=== PATIENT | female | born 1995 | race Caucasian/White ===

== ENCOUNTER 2023-12-15 21:17 | Inpatient (IN) | payer MEDICAID ==
[~2023-12-15] VITALS: Ht 160 cm; Wt 90.7 kg
[2023-12-15] MEDS: VANCOMYCIN 1,000 MG in DEXTROSE 5% 250 ML IV ONE (00:20)
[2023-12-15 21:26] VITALS: BP 106/69; PULSE 62; RESP 20; TEMP 102.6; O2SAT 99
[2023-12-15 22:40] LABS: BASOPHILS # (AUTO) 0.2 K/uL (0.00-0.22); BASOPHILS % (AUTO) 0.5 % (0.0-2.0); EOSINOPHILS % (AUTO) 0.1 % (0.0-4.0); HEMATOCRIT 37.7 % (36-48); HEMOGLOBIN 12.3 g/dL (12.0-16.0); LYMPHOCYTES # (AUTO) 2.8 K/uL (2.5-16.5); LYMPHOCYTES % (AUTO) 8.6 % (20.5-51.1); MEAN CORPUSCULAR HEMOGLOBIN 28 pg (27-31); MEAN CORPUSCULAR HGB CONC 33 g/dL (33-37); MONOCYTES # (AUTO) 3.2 K/uL (0.8-1.0); MONOCYTES % (AUTO) 9.9 % (1.7-9.3); NEUTROPHILS # (AUTO) 26.3 K/uL (1.8-7.7); NEUTROPHILS % (AUTO) 80.9 % (42.2-75.2); PLATELET COUNT (AUTO) 313 K/uL (140-450); RED BLOOD CELL COUNT(AUTO) 4.34 MIL/uL (4.20-5.40); RED CELL DISTRIBUTION WIDTH 13.4 % (11.6-13.7)
[2023-12-15 22:43] LABS: WHITE BLOOD COUNT (AUTO) 32.5 K/uL (4.8-10.8)
[2023-12-15 22:51] LABS: ANION GAP 11.9 (8-16); CALCIUM 8.8 mg/dL (8.5-10.1); CARBON DIOXIDE 24.9 mmol/L (21-32); CREATININE 1.1 mg/dL (0.6-1.3); POTASSIUM 3.8 mmol/L (3.5-5.1)
[2023-12-15] MEDS ORDERED: PIPERACILLIN/TAZOBACTAM 3.375 GM VIAL IV ONE (22:52)
[2023-12-15] MEDS: NACL 0.9% 1,000 ML IV ONE (23:01)
[2023-12-15] MEDS: PIPERACILLIN/TAZOBACTAM 3.375 GM in DEXTROSE 5% 50 ML IV ONE (23:07)
[2023-12-15 23:25] LABS: LACTIC ACID 1.2 mmol/L (0.4-2.0)
[2023-12-15] MEDS ORDERED: VANCOMYCIN 1,000 MG VIAL ONE (23:34)
[2023-12-15 23:53] LABS: APPEARANCE,URINE CLEAR (CLEAR); BILIRUBIN,URINE NEGATIVE (NEGATIVE); BLOOD, URINE NEGATIVE (NEGATIVE); COLOR,URINE YELLOW (YELLOW); LEUKOCYTE ESTERASE ,URINE NEGATIVE (NEGATIVE); NITRITE, URINE NEGATIVE (NEGATIVE); PROTEIN,URINE NEGATIVE (NEGATIVE); UGLUCOSE NEGATIVE (NEGATIVE); UROBILINOGEN,URINE 0.2 EU/dL (0.2 - 1)
[2023-12-15] MEDS: KETOROLAC 30 MG/ML VIAL IVP ONE (23:53)
[2023-12-15] MEDS ORDERED: MORPHINE SULFATE 4 MG/ML SYR ONE (23:56)
[2023-12-16] MEDS: MORPHINE SULFATE 4 MG/ML SYR IVP ONE ×2 (00:05→03:50)
[2023-12-16] MEDS: NACL 0.9% 1,000 ML IV ONE ×2 (00:29→05:34)
[2023-12-16] MEDS: ONDANSETRON 4 MG/2 ML VIAL IVP ONE (00:29)
[2023-12-16] MEDS ORDERED: VANCOMYCIN PER PHARMACY MC PRN (02:20)
[2023-12-16] MEDS: LORazepam 1 MG TAB PO ONE (02:38)
[2023-12-16 02:45] VITALS: O2SAT 95
[2023-12-16] MEDS ORDERED: fentaNYL citrate 0.05 MG/ML VIAL ONE (04:56)
[2023-12-16] MEDS: fentaNYL citrate 0.05 MG/ML VIAL IVP ONE (05:59)
[2023-12-16] MEDS ORDERED: ACETAMINOPHEN 325 MG TAB PO PRN (06:10)
[2023-12-16] MEDS ORDERED: PIPERACILLIN/TAZOBACTAM 3.375 GM VIAL IV ONE (06:18)
[2023-12-16 06:37] LABS: BASOPHILS % (AUTO) 0.1 % (0.0-2.0); EOSINOPHILS # (AUTO) 0.2 K/uL (0-0.4); EOSINOPHILS % (AUTO) 0.5 % (0.0-4.0); HEMATOCRIT 36.1 % (36-48); HEMOGLOBIN 11.6 g/dL (12.0-16.0); LYMPHOCYTES # (AUTO) 3.1 K/uL (2.5-16.5); LYMPHOCYTES % (AUTO) 9.4 % (20.5-51.1); MEAN CORPUSCULAR HEMOGLOBIN 28 pg (27-31); MEAN CORPUSCULAR HGB CONC 32 g/dL (33-37); MEAN CORPUSCULAR VOLUME 88.2 fL (80-94); MONOCYTES # (AUTO) 3.5 K/uL (0.8-1.0); MONOCYTES % (AUTO) 10.7 % (1.7-9.3); NEUTROPHILS # (AUTO) 25.7 K/uL (1.8-7.7); NEUTROPHILS % (AUTO) 79.3 % (42.2-75.2); PLATELET COUNT (AUTO) 274 K/uL (140-450); RED BLOOD CELL COUNT(AUTO) 4.09 MIL/uL (4.20-5.40); RED CELL DISTRIBUTION WIDTH 13.8 % (11.6-13.7)
[2023-12-16 06:41] LABS: WHITE BLOOD COUNT (AUTO) 32.5 K/uL (4.8-10.8)
[2023-12-16] MEDS: PIPERACILLIN/TAZOBACTAM 3.375 GM in DEXTROSE 5% 50 ML IV SCH (06:44)
[2023-12-16 07:00] VITALS: O2SAT 97
[2023-12-16] MEDS: ONDANSETRON 4 MG/2 ML VIAL IVP PRN (07:00)
[2023-12-16 07:07] LABS: ANION GAP 13.1 (8-16); CALCIUM 7.5 mg/dL (8.5-10.1); CARBON DIOXIDE 22.9 mmol/L (21-32)
[2023-12-16] MEDS: HYDROcodone/APAP 5/325 MG 1 TAB TAB PO PRN (07:16)
[2023-12-16] MEDS ORDERED: METOCLOPRAMIDE 10 MG/2 ML INJ VIAL IVP PRN ×2 (07:55→19:50)
[2023-12-16 10:00] VITALS: RESP 18; O2SAT 98
[2023-12-16] MEDS: VANCOMYCIN 1,000 MG in DEXTROSE 5% 250 ML IV SCH (10:28)
[2023-12-16] MEDS ORDERED: VANCOMYCIN 1,000 MG in DEXTROSE 5% 250 ML IV SCH (12:00)
[2023-12-16] MEDS: TRIAMCINOLONE 0.1% CRM 15 GM TUBE TP SCH (12:09)
[2023-12-16] MEDS: MORPHINE SULFATE 2 MG/ML SYR IVP PRN (12:10)
[2023-12-16 16:00] VITALS: BP 105/55; PULSE 106; RESP 20; TEMP 101.8; O2SAT 95
[2023-12-16] MEDS: NACL 0.9% 500 ML IV ONE (17:31)
[2023-12-16] MEDS ORDERED: diphenhydrAMINE 50 MG/ML VIAL IVP PRN (19:55)
[2023-12-16 20:00] VITALS: PULSE 106; RESP 18; TEMP 98.8; O2SAT 99
[2023-12-16] MEDS: diphenhydrAMINE 50 MG/ML VIAL IVP PRN (20:11)
[2023-12-16] MEDS ORDERED: TRIAMCINOLONE 0.1% CRM 15 GM TUBE TP SCH (21:00)
[2023-12-17] MEDS: MELATONIN 3 MG TAB PO PRN (01:46)
[2023-12-17 03:52] LABS: BASOPHILS # (AUTO) 0.1 K/uL (0.00-0.22); BASOPHILS % (AUTO) 0.2 % (0.0-2.0); EOSINOPHILS # (AUTO) 0.3 K/uL (0-0.4); EOSINOPHILS % (AUTO) 1.2 % (0.0-4.0); HEMATOCRIT 32.9 % (36-48); HEMOGLOBIN 10.9 g/dL (12.0-16.0); LYMPHOCYTES # (AUTO) 2.4 K/uL (2.5-16.5); LYMPHOCYTES % (AUTO) 9.4 % (20.5-51.1); MEAN CORPUSCULAR HEMOGLOBIN 29 pg (27-31); MEAN CORPUSCULAR HGB CONC 33 g/dL (33-37); MEAN CORPUSCULAR VOLUME 86.8 fL (80-94); MONOCYTES # (AUTO) 1.8 K/uL (0.8-1.0); NEUTROPHILS # (AUTO) 20.7 K/uL (1.8-7.7); NEUTROPHILS % (AUTO) 82.2 % (42.2-75.2); PLATELET COUNT (AUTO) 276 K/uL (140-450); RED BLOOD CELL COUNT(AUTO) 3.79 MIL/uL (4.20-5.40); RED CELL DISTRIBUTION WIDTH 13.5 % (11.6-13.7)
[2023-12-17 03:59] LABS: WHITE BLOOD COUNT (AUTO) 25.1 K/uL (4.8-10.8)
[2023-12-17 04:07] LABS: ANION GAP 11.2 (8-16); CALCIUM 7.6 mg/dL (8.5-10.1); CARBON DIOXIDE 24.1 mmol/L (21-32); CREATININE 1.2 mg/dL (0.6-1.3); POTASSIUM 4.3 mmol/L (3.5-5.1)
[2023-12-17 08:30] VITALS: BP 112/73; PULSE 103; RESP 18; TEMP 101.1; O2SAT 98
[2023-12-17] MEDS ORDERED: PHENYLEPHRINE 10 MG/ML VIAL IV ONE (09:17)
[2023-12-17] MEDS: ceFAZolin 2,000 MG VIAL ONE (09:25)
[2023-12-17 09:32] VITALS: PULSE 103; RESP 18; O2SAT 98
[2023-12-17] MEDS ORDERED: HYDROmorphone 1 MG/ML AMP IVP PRN (09:45)
[2023-12-17] MEDS ORDERED: ONDANSETRON 4 MG/2 ML VIAL IVP PRN (09:45)
[2023-12-17] MEDS: PROPOFOL 200 MG/20 ML VIAL IV ONE (09:56)
[2023-12-17] MEDS: DEXAMETHASONE 4 MG/ML VIAL ONE (09:56)
[2023-12-17] MEDS: fentaNYL citrate 0.05 MG/ML VIAL ONE (09:56)
[2023-12-17] MEDS: METOCLOPRAMIDE 10 MG/2 ML INJ VIAL ONE (09:56)
[2023-12-17] MEDS: MIDAZOLAM 2 MG/2 ML VIAL ONE (09:56)
[2023-12-17] MEDS: HYDROmorphone PFS 2 MG/ML SYR ONE (09:57)
[2023-12-17] MEDS: ONDANSETRON 4 MG/2 ML VIAL ONE (09:57)
[2023-12-17] MEDS: BUPIVACAINE-MPF 0.25% 30 ML VIAL INJ ONE (09:57)
[2023-12-17 10:29] VITALS: TEMP 101.1
[2023-12-17 10:49] VITALS: BP 105/56; PULSE 94; RESP 18; TEMP 98; O2SAT 98
[2023-12-17] MEDS: TAMSULOSIN 0.4 MG CAP PO SCH (11:30)
[2023-12-17 16:15] VITALS: BP 102/56; PULSE 74; RESP 18; TEMP 98.2; O2SAT 97
[2023-12-17 20:00] VITALS: PULSE 73; RESP 18; TEMP 97.4; O2SAT 97
[2023-12-18] VITALS: BP 113/61; PULSE 76; RESP 18; TEMP 97.6; O2SAT 98
[2023-12-18 06:49] LABS: BASOPHILS % (AUTO) 0.1 % (0.0-2.0); EOSINOPHILS # (AUTO) 0.1 K/uL (0-0.4); EOSINOPHILS % (AUTO) 0.5 % (0.0-4.0); HEMOGLOBIN 10.5 g/dL (12.0-16.0); LYMPHOCYTES # (AUTO) 2.5 K/uL (2.5-16.5); LYMPHOCYTES % (AUTO) 9.7 % (20.5-51.1); MEAN CORPUSCULAR HEMOGLOBIN 29 pg (27-31); MEAN CORPUSCULAR HGB CONC 33 g/dL (33-37); MEAN CORPUSCULAR VOLUME 87.3 fL (80-94); MONOCYTES # (AUTO) 1.8 K/uL (0.8-1.0); MONOCYTES % (AUTO) 7.2 % (1.7-9.3); NEUTROPHILS % (AUTO) 82.5 % (42.2-75.2); PLATELET COUNT (AUTO) 306 K/uL (140-450); RED BLOOD CELL COUNT(AUTO) 3.67 MIL/uL (4.20-5.40); RED CELL DISTRIBUTION WIDTH 13.5 % (11.6-13.7)
[2023-12-18 07:27] LABS: WHITE BLOOD COUNT (AUTO) 25.5 K/uL (4.8-10.8)
[2023-12-18 07:35] LABS: ANION GAP 10.7 (8-16); CALCIUM 8.2 mg/dL (8.5-10.1); CARBON DIOXIDE 25.7 mmol/L (21-32); CREATININE 0.9 mg/dL (0.6-1.3); POTASSIUM 4.4 mmol/L (3.5-5.1)
[2023-12-18 08:00] VITALS: BP 106/72; PULSE 81; RESP 18; TEMP 98.6; O2SAT 100; O2SAT 96
[2023-12-18] MEDS: DOCUSATE SODIUM 100 MG GELCAP PO SCH (13:28)
[2023-12-18] MEDS: LIDOCAINE OINTMENT 5% 35 GM TUBE TP SCH (15:30)
[2023-12-18 16:00] VITALS: BP 120/83; PULSE 65; RESP 18; TEMP 97.8; O2SAT 100
[2023-12-18 20:00] VITALS: PULSE 65; RESP 18; TEMP 97.7; O2SAT 100
[2023-12-19] VITALS: BP 108/52; PULSE 65; RESP 18; TEMP 97.7; O2SAT 100
[2023-12-19 06:30] LABS: BASOPHILS % (AUTO) 0.4 % (0.0-2.0); EOSINOPHILS # (AUTO) 0.7 K/uL (0-0.4); EOSINOPHILS % (AUTO) 5.2 % (0.0-4.0); HEMATOCRIT 27.3 % (36-48); HEMOGLOBIN 9.1 g/dL (12.0-16.0); LYMPHOCYTES # (AUTO) 4.4 K/uL (2.5-16.5); LYMPHOCYTES % (AUTO) 34.4 % (20.5-51.1); MEAN CORPUSCULAR HEMOGLOBIN 29 pg (27-31); MEAN CORPUSCULAR HGB CONC 34 g/dL (33-37); MEAN CORPUSCULAR VOLUME 87.2 fL (80-94); MONOCYTES # (AUTO) 1.2 K/uL (0.8-1.0); MONOCYTES % (AUTO) 9.7 % (1.7-9.3); NEUTROPHILS # (AUTO) 6.4 K/uL (1.8-7.7); NEUTROPHILS % (AUTO) 50.3 % (42.2-75.2); PLATELET COUNT (AUTO) 285 K/uL (140-450); RED BLOOD CELL COUNT(AUTO) 3.13 MIL/uL (4.20-5.40); RED CELL DISTRIBUTION WIDTH 13.7 % (11.6-13.7); WHITE BLOOD COUNT (AUTO) 12.7 K/uL (4.8-10.8)
[2023-12-19 06:58] LABS: ANION GAP 10.7 (8-16); CALCIUM 7.9 mg/dL (8.5-10.1); CARBON DIOXIDE 27.7 mmol/L (21-32); POTASSIUM 4.4 mmol/L (3.5-5.1)
[2023-12-19 08:00] VITALS: BP 107/61; PULSE 75; RESP 18; TEMP 98; O2SAT 98
[2023-12-19 09:27] VITALS: PULSE 75; RESP 18; O2SAT 98
[2023-12-19 16:00] VITALS: BP 95/59; PULSE 65; RESP 18; TEMP 98.1; O2SAT 96
[2023-12-19 20:00] VITALS: PULSE 68; RESP 18; TEMP 97.9; O2SAT 96
[2023-12-20] VITALS: BP 110/64; PULSE 68; RESP 18; TEMP 97.9; O2SAT 96
[2023-12-20 06:34] LABS: BASOPHILS % (AUTO) 0.4 % (0.0-2.0); EOSINOPHILS # (AUTO) 0.7 K/uL (0-0.4); EOSINOPHILS % (AUTO) 6.5 % (0.0-4.0); HEMATOCRIT 31.1 % (36-48); HEMOGLOBIN 10.3 g/dL (12.0-16.0); LYMPHOCYTES # (AUTO) 4.1 K/uL (2.5-16.5); MEAN CORPUSCULAR HEMOGLOBIN 29 pg (27-31); MEAN CORPUSCULAR HGB CONC 33 g/dL (33-37); MEAN CORPUSCULAR VOLUME 86.9 fL (80-94); MONOCYTES # (AUTO) 0.8 K/uL (0.8-1.0); MONOCYTES % (AUTO) 7.5 % (1.7-9.3); NEUTROPHILS # (AUTO) 5.4 K/uL (1.8-7.7); NEUTROPHILS % (AUTO) 48.6 % (42.2-75.2); PLATELET COUNT (AUTO) 361 K/uL (140-450); RED BLOOD CELL COUNT(AUTO) 3.57 MIL/uL (4.20-5.40); RED CELL DISTRIBUTION WIDTH 13.4 % (11.6-13.7); WHITE BLOOD COUNT (AUTO) 11.1 K/uL (4.8-10.8)
[2023-12-20 06:44] LABS: ANION GAP 10.8 (8-16); CALCIUM 8.3 mg/dL (8.5-10.1); CARBON DIOXIDE 28.9 mmol/L (21-32); POTASSIUM 4.7 mmol/L (3.5-5.1)
[2023-12-20 08:00] VITALS: BP 96/59; PULSE 66; RESP 18; RESP 20; TEMP 97.4; O2SAT 98
[2023-12-20] MEDS ORDERED: ACET-8905 PO (10:06)
[2023-12-20] MEDS ORDERED: DOCU-299 PO (10:06)
[2023-12-20] MEDS ORDERED: LEVO-481 PO (10:06)
== END 2023-12-20 12:30 | disposition home or self-care (01) | DRG 710 ==
LOC: MED 21:17 → MTU 12-16 02:26
PROVIDERS: ADMIT Student in an Organized Health Care Education/Training Program; ATTEND Student in an Organized Health Care Education/Training Program
PROC: 3E0T3BZ Introduction of Anesthetic Agent into Peripheral Nerves and Plexi, Percutaneous Approach (ICD-10-PCS; 2023-12-17)
PROC: 0D9P0ZZ Drainage of Rectum, Open Approach (ICD-10-PCS; principal; 2023-12-17 07:30)
DX: A41.9 Sepsis, unspecified organism (principal); E87.1 Hypo-osmolality and hyponatremia; K61.2 Anorectal abscess; T36.8X5A Adverse effect of other systemic antibiotics, initial encounter; Z90.49 Acquired absence of other specified parts of digestive tract; Z88.1 Allergy status to other antibiotic agents; Z88.8 Allergy status to other drugs, medicaments and biological substances; Y92.89 Other specified places as the place of occurrence of the external cause
CPT/HCPCS: 36415; 80048; 80202; 81003; 83605; 84702; 85025; 87040; 87070; 87075; 87081; 87086; 87186; 87205; 96361; 96365; 96367; 96375; 99285; J1100; J1170; J1200; J1885; J2250; J2270; J2370; J2405; J2543; J2704; J2765; J3010; J3370; J3490; J7060; Q9967